=== PATIENT | female | born 1970 | race Two or more races ===

== ENCOUNTER 2017-12-15 10:11 | Outpatient (CLI) | payer OTHER | END 2017-12-15 10:19 | disposition home or self-care (01) | LOC: MRI 10:11 | DX: R51 Headache (principal) | CPT/HCPCS: 70551 ==

== ENCOUNTER 2018-01-22 09:23 | Outpatient (CLI) | payer OTHER | END 2018-01-22 09:25 | disposition home or self-care (01) | LOC: LAB 09:23 | DX: E78.2 Mixed hyperlipidemia (principal) ==

== ENCOUNTER 2018-01-22 11:10 | Outpatient (CLI) | payer OTHER | END 2018-01-22 17:00 | disposition home or self-care (01) | LOC: SONOGRAMA 11:10 | DX: E04.1 Nontoxic single thyroid nodule (principal) ==

== ENCOUNTER 2018-05-28 08:39 | Outpatient (CLI) | payer OTHER | END 2018-05-28 09:03 | disposition home or self-care (01) | LOC: LAB 08:39 | DX: D64.89 Other specified anemias (principal); E11.9 Type 2 diabetes mellitus without complications; E78.2 Mixed hyperlipidemia; K76.89 Other specified diseases of liver; E03.8 Other specified hypothyroidism; E55.9 Vitamin D deficiency, unspecified; R29.898 Other symptoms and signs involving the musculoskeletal system ==

== ENCOUNTER 2018-12-02 08:36 | Outpatient (CLI) | payer OTHER | END 2018-12-02 08:47 | disposition home or self-care (01) | LOC: LAB 08:36 | DX: E55.9 Vitamin D deficiency, unspecified (principal); I10 Essential (primary) hypertension; D64.89 Other specified anemias; E11.8 Type 2 diabetes mellitus with unspecified complications; E78.49 Other hyperlipidemia; E03.8 Other specified hypothyroidism ==

== ENCOUNTER 2018-12-02 09:38 | Outpatient (CLI) | payer OTHER | END 2018-12-02 09:39 | disposition home or self-care (01) | LOC: MAMO-SONO 09:38 | DX: N60.12 Diffuse cystic mastopathy of left breast (principal); N60.11 Diffuse cystic mastopathy of right breast; Z12.31 Encounter for screening mammogram for malignant neoplasm of breast ==

== ENCOUNTER 2019-04-02 09:02 | Outpatient (CLI) | payer OTHER | END 2019-04-02 09:09 | disposition home or self-care (01) | LOC: LAB 09:02 | DX: E83.51 Hypocalcemia (principal); A64 Unspecified sexually transmitted disease; N39.0 Urinary tract infection, site not specified; R97.8 Other abnormal tumor markers ==

== ENCOUNTER 2019-06-10 09:16 | Outpatient (CLI) | payer OTHER | END 2019-06-10 09:18 | disposition home or self-care (01) | LOC: SONOGRAMA 09:16 → MAMO-SONO 09:45 | DX: E04.2 Nontoxic multinodular goiter (principal) ==

== ENCOUNTER 2019-06-18 10:48 | Outpatient (CLI) | payer OTHER | END 2019-06-18 10:55 | disposition home or self-care (01) | LOC: LAB 10:48 | DX: D64.89 Other specified anemias (principal); E11.9 Type 2 diabetes mellitus without complications; E78.2 Mixed hyperlipidemia; I10 Essential (primary) hypertension; E03.8 Other specified hypothyroidism ==

== ENCOUNTER 2019-08-09 08:43 | Outpatient (CLI) | payer OTHER | END 2019-08-09 08:52 | disposition home or self-care (01) | LOC: LAB 08:43 | DX: D64.89 Other specified anemias (principal); Z12.11 Encounter for screening for malignant neoplasm of colon; E03.8 Other specified hypothyroidism; N95.1 Menopausal and female climacteric states; I10 Essential (primary) hypertension; C51.9 Malignant neoplasm of vulva, unspecified; A64 Unspecified sexually transmitted disease; N39.0 Urinary tract infection, site not specified; R97.8 Other abnormal tumor markers; R79.89 Other specified abnormal findings of blood chemistry; E55.9 Vitamin D deficiency, unspecified ==

== ENCOUNTER → 2019-11-01 | Outpatient (CLI) | payer OTHER | END | disposition home or self-care (01) | LOC: LAB 09:09 | DX: Z12.11 Encounter for screening for malignant neoplasm of colon (principal) ==

== ENCOUNTER → 2019-12-08 | Outpatient (CLI) | payer OTHER | END | disposition home or self-care (01) | LOC: MAMO-SONO 08:36 | DX: Z12.31 Encounter for screening mammogram for malignant neoplasm of breast (principal); Z87.898 Personal history of other specified conditions; N60.11 Diffuse cystic mastopathy of right breast; N60.12 Diffuse cystic mastopathy of left breast ==

== ENCOUNTER 2020-03-22 08:38 | Outpatient (CLI) | payer OTHER | END 2020-03-22 10:14 | disposition home or self-care (01) | LOC: LAB 08:38 | PROVIDERS: ATTEND Internal Medicine Sports Medicine | DX: D64.89 Other specified anemias (principal); E03.8 Other specified hypothyroidism; E11.9 Type 2 diabetes mellitus without complications; E78.2 Mixed hyperlipidemia; I10 Essential (primary) hypertension ==

== ENCOUNTER 2020-07-23 11:11 | Emergency (ER) | payer OTHER ==
[~2020-07-23] VITALS: Ht 154.9 cm; Wt 56.7 kg
[2020-07-23] MEDS ORDERED: LIPITOR40 M1 (12:10)
[2020-07-23] MEDS ORDERED: DOLOGEN CAPLET1 EACH PO (12:39)
== END 2020-07-23 13:06 | disposition home or self-care (01) ==
LOC: ER 11:11
DX: M54.5 Low back pain (principal)

== ENCOUNTER → 2021-03-06 08:51 | Outpatient (CLI) | payer OTHER ==
[~2021-03-06 08:51] MED LIST: DOLOGEN CAPLET1 EACH PO; LIPITOR40 M1
== END | disposition home or self-care (01) ==
LOC: LAB 08:51
PROVIDERS: ATTEND Internal Medicine Sports Medicine
DX: D64.9 Anemia, unspecified (principal); E11.9 Type 2 diabetes mellitus without complications; E78.2 Mixed hyperlipidemia; I10 Essential (primary) hypertension; E03.8 Other specified hypothyroidism

== ENCOUNTER 2021-03-19 12:34 | Outpatient (CLI) | payer OTHER | END 2021-03-19 12:58 | disposition home or self-care (01) | LOC: MAMO-SONO 12:34 | PROVIDERS: ATTEND Obstetrics & Gynecology | DX: N60.11 Diffuse cystic mastopathy of right breast (principal); N60.12 Diffuse cystic mastopathy of left breast ==

== ENCOUNTER 2021-03-30 11:34 | Outpatient (CLI) | payer OTHER | END 2021-03-30 11:47 | disposition home or self-care (01) | LOC: TOM 11:34 | PROVIDERS: ATTEND Obstetrics & Gynecology | DX: N80.9 Endometriosis, unspecified (principal); D25.9 Leiomyoma of uterus, unspecified ==

== ENCOUNTER 2021-05-25 13:01 | Outpatient (CLI) | payer OTHER | END 2021-05-25 13:12 | disposition home or self-care (01) | LOC: SONOGRAMA 13:01 → MAMO-SONO 13:15 | PROVIDERS: ATTEND Internal Medicine Sports Medicine | DX: E04.1 Nontoxic single thyroid nodule (principal); E04.8 Other specified nontoxic goiter ==

== ENCOUNTER 2021-09-11 09:32 | Outpatient (CLI) | payer OTHER | END 2021-09-11 09:33 | disposition home or self-care (01) | LOC: LAB 09:32 | PROVIDERS: ATTEND Obstetrics & Gynecology Gynecologic Oncology | DX: R97.1 Elevated cancer antigen 125 [CA 125] (principal); N83.291 Other ovarian cyst, right side ==

== ENCOUNTER 2021-09-13 08:11 | Outpatient (CLI) | payer OTHER | END 2021-09-13 08:27 | disposition home or self-care (01) | LOC: MRI 08:11 | PROVIDERS: ATTEND Obstetrics & Gynecology Gynecologic Oncology | DX: D25.1 Intramural leiomyoma of uterus (principal); R19.07 Generalized intra-abdominal and pelvic swelling, mass and lump; R97.1 Elevated cancer antigen 125 [CA 125] | CPT/HCPCS: 72197; 74183 ==

== ENCOUNTER 2021-12-03 09:21 | Outpatient (CLI) | payer OTHER | END 2021-12-03 09:37 | disposition home or self-care (01) | LOC: LAB 09:21 | PROVIDERS: ATTEND Internal Medicine Sports Medicine | DX: D64.9 Anemia, unspecified (principal); E11.9 Type 2 diabetes mellitus without complications; E78.2 Mixed hyperlipidemia; I10 Essential (primary) hypertension; E03.8 Other specified hypothyroidism; E55.9 Vitamin D deficiency, unspecified ==

== ENCOUNTER 2022-09-02 09:20 | Outpatient (CLI) | payer OTHER | END 2022-09-02 23:00 | disposition home or self-care (01) | LOC: LAB 09:20 | PROVIDERS: ATTEND Obstetrics & Gynecology Gynecologic Oncology | DX: R97.1 Elevated cancer antigen 125 [CA 125] (principal); R80.1 Persistent proteinuria, unspecified ==

== ENCOUNTER 2022-09-02 10:35 | Outpatient (CLI) | payer OTHER | END 2022-09-02 10:48 | disposition home or self-care (01) | LOC: SONOGRAMA 10:35 | PROVIDERS: ATTEND Obstetrics & Gynecology Gynecologic Oncology | DX: N80.109 Endometriosis of ovary, unspecified side, unspecified depth (principal) ==

== ENCOUNTER 2022-12-31 13:30 | Outpatient (CLI) | payer OTHER | END 2022-12-31 13:38 | disposition home or self-care (01) | LOC: MAMO-SONO 13:30 | PROVIDERS: ATTEND Internal Medicine Sports Medicine | DX: Z12.31 Encounter for screening mammogram for malignant neoplasm of breast (principal); R74.01 Elevation of levels of liver transaminase levels ==

== ENCOUNTER 2023-01-02 08:08 | Outpatient (CLI) | payer OTHER | END 2023-01-02 08:16 | disposition home or self-care (01) | LOC: SONOGRAMA 08:08 | PROVIDERS: ATTEND Internal Medicine Sports Medicine | DX: R74.01 Elevation of levels of liver transaminase levels (principal) ==

== ENCOUNTER 2023-03-12 12:29 | Outpatient (CLI) | payer OTHER | END 2023-03-12 12:46 | disposition home or self-care (01) | LOC: LAB 12:29 | PROVIDERS: ATTEND Student in an Organized Health Care Education/Training Program | DX: Z12.11 Encounter for screening for malignant neoplasm of colon (principal); D64.9 Anemia, unspecified; E03.8 Other specified hypothyroidism; N95.1 Menopausal and female climacteric states; I10 Essential (primary) hypertension; C51.9 Malignant neoplasm of vulva, unspecified; N30.00 Acute cystitis without hematuria; A64 Unspecified sexually transmitted disease; R97.8 Other abnormal tumor markers; R79.89 Other specified abnormal findings of blood chemistry; E55.9 Vitamin D deficiency, unspecified; A60.9 Anogenital herpesviral infection, unspecified ==

== ENCOUNTER 2023-05-02 10:22 | Outpatient (CLI) | payer OTHER | END 2023-05-02 10:33 | disposition home or self-care (01) | LOC: SONOGRAMA 10:22 | PROVIDERS: ATTEND Internal Medicine Sports Medicine | DX: E04.1 Nontoxic single thyroid nodule (principal); E04.2 Nontoxic multinodular goiter ==

== ENCOUNTER 2023-05-29 08:54 | Outpatient (CLI) | payer OTHER | END 2023-05-29 08:56 | disposition home or self-care (01) | LOC: SONOGRAMA 08:54 | PROVIDERS: ATTEND Pathology Anatomic Pathology & Clinical Pathology | DX: D34 Benign neoplasm of thyroid gland (principal); E04.9 Nontoxic goiter, unspecified ==

== ENCOUNTER 2024-06-09 08:49 | Outpatient (CLI) | payer OTHER | END 2024-06-09 09:03 | disposition home or self-care (01) | LOC: MAMO-SONO 08:49 | PROVIDERS: ATTEND Internal Medicine Sports Medicine | DX: Z12.39 Encounter for other screening for malignant neoplasm of breast (principal) ==

== ENCOUNTER 2024-06-23 10:06 | Outpatient (CLI) | payer OTHER | END 2024-06-23 10:21 | disposition home or self-care (01) | LOC: SONOGRAMA 10:06 | PROVIDERS: ATTEND Internal Medicine Sports Medicine | DX: R10.2 Pelvic and perineal pain (principal) ==

== ENCOUNTER 2024-08-29 13:53 | Emergency (ER) | payer OTHER ==
[~2024-08-29] VITALS: Ht 154.9 cm; Wt 52.6 kg
[2024-08-29 14:02] VITALS: BP 119/77; O2SAT 100
[2024-08-29] MEDS ORDERED: ORPHENADRINE CITRATE 30 MG/ML AMPUL IM ONE (14:30)
[2024-08-29] MEDS ORDERED: TRAMADOL HCL 50 MG TABLET PO ONE (14:30)
[2024-08-29] MEDS ORDERED: TRIAMCINOLONE ACETONIDE 40 MG/ML VIAL IM ONE (14:30)
[2024-08-29] MEDS ORDERED: GABAPENTIN 100 MG CAPSULE PO ONE (14:30)
== END 2024-08-29 16:52 | disposition home or self-care (01) ==
LOC: ER 13:55
DX: M54.31 Sciatica, right side (principal); Z88.6 Allergy status to analgesic agent

== ENCOUNTER 2025-06-13 09:12 | Outpatient (CLI) | payer OTHER | END 2025-06-13 09:16 | disposition home or self-care (01) | LOC: MAMO-SONO 09:12 | PROVIDERS: ATTEND Internal Medicine Sports Medicine | DX: N83.209 Unspecified ovarian cyst, unspecified side (principal); Z12.39 Encounter for other screening for malignant neoplasm of breast; D25.9 Leiomyoma of uterus, unspecified ==